=== PATIENT | female | born 1990 | race Caucasian/White ===

== ENCOUNTER 2019-06-22 05:32 | Inpatient (IN) ==
[2019-06-22] MEDS ORDERED: MEPERIDINE 50 MG/1 ML VIAL IV PRN (05:40)
[2019-06-22] MEDS ORDERED: BUTORPHANOL 2 MG/ML VIAL IV PRN (05:40)
[2019-06-22] MEDS ORDERED: ONDANSETRON 4 MG/2 ML VIAL IV PRN ×2 (05:40→13:12)
[2019-06-22] MEDS ORDERED: OXYTOCIN/LR 20 UNIT/1,000 ML BAG IV SCH (06:00)
[2019-06-22] MEDS ORDERED: AMPICILLIN INJ 2,000 MG in SODIUM CHLORIDE 0.9% 100 ML IV ONE (06:35)
[2019-06-22] MEDS ORDERED: SODIUM CHLORIDE 0.9% 100 ML IV ONE (06:37)
[2019-06-22] MEDS ORDERED: AMPICILLIN 2,000 MG VIAL ONE (06:37)
[2019-06-22 06:39] LABS: Basophils % 0.4 % (0.0-0.8); Eosinophils # 0.1 10*3/uL (0.0-0.87); Eosinophils % 0.7 % (0.00-10.9); Hemoglobin 9.8 GM/DL (12.0-16.0); Immature Granulocytes % 0.3 %; Immature Granulocytes Absolute 0.02 #; Lymphocytes # 1.9 10*3/uL (1.4-4.0); Mean Corpuscular HGB Conc 31.6 GM/DL (32-36); Mean Corpuscular Volume 88.8 FL (87-102); Mean Platelet Volume 11.1 FL (9.6-12.0); Monocytes % 9.7 % (1.7-12.7); Neutrophils % 62.9 % (38.7-73.9); Platelet Count 225 T/CUMM (130-400); Red Blood Count 3.49 MC/CUMM (3.8-5.5); Red Cell Distribution Width 12.9 % (9.3-17.3); White Blood Count 7.5 T/CUMM (4-12)
[2019-06-22 07:04] LABS: Albumin 2.4 G/DL (3.4-5.0); Bilirubin,Total 0.5 MG/DL (0.2-1.0); Calcium 8.6 MG/DL (8.5-10.1); Total Protein 6.3 G/DL (6.4-8.3)
[2019-06-22] MEDS: LACTATED RINGERS 1,000 ML IV SCH ×2 (07:20→11:26)
[2019-06-22] MEDS ORDERED: ePHEDrine 50 MG/ML AMP IV PRN (09:50)
[2019-06-22] MEDS ORDERED: hydrOXYzine HCL 25 MG/1 ML VIAL IM PRN (09:50)
[2019-06-22] MEDS ORDERED: diphenhydrAMINE 50 MG/1 ML VIAL IV PRN ×2 (09:50)
[2019-06-22] MEDS ORDERED: NALOXONE 0.4 MG/ML VIAL IV PRN (09:50)
[2019-06-22] MEDS ORDERED: PROMETHAZINE 25 MG/1 ML VIAL IM ONE (09:50)
[2019-06-22] MEDS ORDERED: LACTATED RINGERS 1,000 ML IV ONE (09:53)
[2019-06-22] MEDS ORDERED: CITRIC ACID/SODIUM CITRATE 30 ML UDCUP PO ONE (09:53)
[2019-06-22] MEDS ORDERED: FAMOTIDINE 20 MG/2 ML VIAL IV ONE (09:53)
[2019-06-22] MEDS ORDERED: fentaNYL 2 MCG/ROPIV 0.2% EPID 100 ML EPIDURAL SCH (10:00)
[2019-06-22] MEDS: AMPICILLIN INJ 1,000 MG in SODIUM CHLORIDE 0.9% 100 ML IV SCH ×2 (10:18→14:38)
[2019-06-22 11:38] LABS: Apearance,Urine CLEAR (Clear); Bilirubin,Urine Negative (Negative); Blood, Urine Small mg/dL (Negative); Glucose,Urine (UA) Negative (Negative); Ketones,Urine Negative (Negative); Nitrite,Urine Negative (Negative); Protein,Urine Negative; RBC,Urine 7 /HPF (0-4); Squamous Epithelial Cell,Urine Occasional /HPF (0-10); Urine Color Straw (Yellow); Urine Specific Gravity 1.014 (1.001-1.035); Urine Urobilinogen < 2.0 EU/DL (0.2-1.0); WBC,Urine 1 /HPF (0-6)
[2019-06-22] MEDS ORDERED: miSOPROStoL 200 MCG TABLET ONE (12:55)
[2019-06-22] MEDS ORDERED: CARBOPROST TROMETHAMINE 250 MCG/ML AMP IM ONE (12:55)
[2019-06-22] MEDS ORDERED: MEPERIDINE 25 MG/1 ML VIAL ONE (12:55)
[2019-06-22] MEDS ORDERED: METHYLERGONOVINE 0.2 MG/1 ML AMP ONE (12:55)
[2019-06-22] MEDS ORDERED: LIDOCAINE 1% 50 ML VIAL ONE (12:56)
[2019-06-22] MEDS ORDERED: OXYTOCIN/LR 20 UNIT/1,000 ML BAG IV ONE (13:12)
[2019-06-22] MEDS ORDERED: WITCH HAZEL PADS 100/JAR TOP PRN (13:12)
[2019-06-22] MEDS ORDERED: DIPH/TET/ACEL PERT BOOSTER VACCINE 0.5 ML VIAL IM ONE (13:12)
[2019-06-22] MEDS ORDERED: HYDROCORTISONE 2.5% RECTAL CREAM 30 GM TUBE TOP PRN (13:12)
[2019-06-22] MEDS ORDERED: LANOLIN 50% CREAM 0.3 OZ TUBE TOP PRN (13:12)
[2019-06-22] MEDS ORDERED: BENZOCAINE 20%/MENTHOL 0.5% SPRAY 56 GM CAN TOP PRN (13:12)
[2019-06-22] MEDS ORDERED: MEASLES/MUMPS/RUBELLA VACCINE 0.5 ML VIAL SUBCUT ONE (13:12)
[2019-06-22] MEDS ORDERED: BISACODYL 10 MG SUPP RECTAL PRN (13:12)
[2019-06-22] MEDS ORDERED: ACETAMINOPHEN 325 MG TABLET PO PRN (13:12)
[2019-06-22] MEDS ORDERED: oxyCODONE/ACETAMINOPHEN 5-325 MG TABLET PO PRN (13:12)
[2019-06-22] MEDS ORDERED: RHO(D) IMMUNE GLOBULIN 300 MCG SYRINGE IM ONE (13:12)
[2019-06-22] MEDS: IBUPROFEN 800 MG TABLET PO PRN (14:36)
[2019-06-22] MEDS: oxyCODONE/ACETAMINOPHEN 5-325 MG TABLET PO PRN (18:30)
[2019-06-22] MEDS: DOCUSATE SODIUM 100 MG CAPSULE PO SCH (21:09)
[2019-06-23] MEDS: IBUPROFEN 800 MG TABLET PO PRN ×2 (00:34→08:55)
[2019-06-23] MEDS: oxyCODONE/ACETAMINOPHEN 5-325 MG TABLET PO PRN (00:35)
[2019-06-23 06:50] LABS: Basophils % 0.3 % (0.0-0.8); Eosinophils # 0.1 10*3/uL (0.0-0.87); Eosinophils % 1.3 % (0.00-10.9); Hematocrit 27.7 VOL% (35.7-47.0); Hemoglobin 8.4 GM/DL (12.0-16.0); Immature Granulocytes % 0.6 %; Immature Granulocytes Absolute 0.05 #; Lymphocytes % 22.5 % (21.3-54.2); Mean Corpuscular HGB Conc 30.3 GM/DL (32-36); Mean Platelet Volume 11.3 FL (9.6-12.0); Monocytes % 7.4 % (1.7-12.7); Neutrophils % 67.9 % (38.7-73.9); Platelet Count 196 T/CUMM (130-400); Red Blood Count 3.01 MC/CUMM (3.8-5.5); Red Cell Distribution Width 13.1 % (9.3-17.3)
[2019-06-23] MEDS: DOCUSATE SODIUM 100 MG CAPSULE PO SCH ×2 (08:55→20:43)
[2019-06-24 08:20] VITALS: BP 114/70
[2019-06-24] MEDS ORDERED: DIPH/TET/ACEL PERT BOOSTER VACCINE 0.5 ML VIAL IM ONE (09:52)
== END 2019-06-24 10:45 | disposition home or self-care (01) | DRG 807 ==
LOC: N.LDOUT 05:32 → N.LD 05:34 → N.OB 15:12
PROVIDERS: ADMIT Specialist; ATTEND Specialist

== ENCOUNTER 2021-02-01 05:45 | Inpatient (IN) ==
[2021-02-01] MEDS ORDERED: ONDANSETRON 4 MG/2 ML VIAL IV PRN ×2 (05:56→15:55)
[2021-02-01] MEDS ORDERED: BUTORPHANOL 2 MG/ML VIAL IV PRN (05:56)
[2021-02-01] MEDS ORDERED: MEPERIDINE 50 MG/1 ML VIAL IV PRN (05:56)
[2021-02-01] MEDS ORDERED: LACTATED RINGERS 1,000 ML IV SCH (06:00)
[2021-02-01 06:21] LABS: Basophils % 0.5 % (0.0-0.8); Eosinophils # 0.1 10*3/uL (0.0-0.87); Eosinophils % 0.9 % (0.00-10.9); Hematocrit 34.7 VOL% (35.7-47.0); Hemoglobin 10.6 GM/DL (12.0-16.0); Immature Granulocytes % 0.5 %; Immature Granulocytes Absolute 0.04 #; Lymphocytes # 2.1 10*3/uL (1.4-4.0); Lymphocytes % 26.3 % (21.3-54.2); Mean Corpuscular HGB Conc 30.5 GM/DL (32-36); Mean Corpuscular Volume 83.4 FL (87-102); Mean Platelet Volume 11.9 FL (9.6-12.0); Monocytes % 5.8 % (1.7-12.7); Platelet Count 205 T/CUMM (130-400); Red Blood Count 4.16 MC/CUMM (3.8-5.5); Red Cell Distribution Width 14.1 % (9.3-17.3)
[2021-02-01] MEDS ORDERED: AMPICILLIN INJ 2,000 MG in SODIUM CHLORIDE 0.9% 100 ML IV ONE (06:30)
[2021-02-01] MEDS ORDERED: OXYTOCIN/LR 20 UNIT/1,000 ML BAG IV SCH (06:30)
[2021-02-01 06:46] LABS: Eosinophils 1 % (0-10); Hypochromasia 1+; Lymphocytes 28 % (20-55); Microcytosis 1+; Platelet Estimate Adequate; Segmented Neutrophils 67 % (50-85); Total Cells Counted 100
[2021-02-01 06:58] LABS: Albumin 2.7 G/DL (3.4-5.0); Bilirubin,Total 1.5 MG/DL (0.20-1.00); Calcium 8.7 MG/DL (8.5-10.1); Osmolality,Calculated 271.8 MOS/KG (273-304); Potassium 3.9 MMOL/L (3.5-5.1); Total Protein 7.1 G/DL (6.4-8.2)
[2021-02-01] MEDS ORDERED: FAMOTIDINE 20 MG/2 ML VIAL IV ONE (07:26)
[2021-02-01] MEDS ORDERED: PROMETHAZINE 25 MG/1 ML VIAL IM PRN (07:26)
[2021-02-01] MEDS ORDERED: diphenhydrAMINE 50 MG/1 ML VIAL IV PRN (07:26)
[2021-02-01] MEDS ORDERED: CITRIC ACID/SODIUM CITRATE 30 ML UDCUP PO ONE (07:26)
[2021-02-01] MEDS ORDERED: NALOXONE 0.4 MG/ML VIAL IV PRN (07:26)
[2021-02-01] MEDS ORDERED: hydrOXYzine HCL 25 MG/1 ML VIAL IM PRN (07:26)
[2021-02-01] MEDS ORDERED: ePHEDrine 50 MG/ML VIAL IV PRN (07:26)
[2021-02-01] MEDS ORDERED: fentaNYL 2 MCG/ROPIV 0.2% EPID 100 ML EPIDURAL SCH (07:30)
[2021-02-01 10:03] LABS: Bilirubin,Urine Negative (Negative); Blood, Urine Negative (Negative); Glucose,Urine (UA) Negative (Negative); Hyaline Casts,Urine 1 /LPF (0-3); Ketones,Urine Negative (Negative); Nitrite,Urine Negative (Negative); Protein,Urine Negative; RBC,Urine <1 /HPF (0-4); Urine Appearance CLEAR (Clear); Urine Color Straw (Yellow); Urine Specific Gravity 1.008 (1.001-1.035); Urine Urobilinogen < 2.0 EU/DL (0.2-1.0)
[2021-02-01] MEDS ORDERED: AMPICILLIN INJ 1,000 MG in SODIUM CHLORIDE 0.9% 100 ML IV SCH (10:30)
[2021-02-01] MEDS ORDERED: SODIUM CHLORIDE 0.9% 0 ML IV ONE (10:44)
[2021-02-01] MEDS ORDERED: TRANEXAMIC ACID 1,000 MG/10 ML VIAL ONE (10:44)
[2021-02-01] MEDS ORDERED: miSOPROStoL 200 MCG TABLET ONE (10:44)
[2021-02-01] MEDS ORDERED: METHYLERGONOVINE 0.2 MG/1 ML AMP ONE (10:45)
[2021-02-01] MEDS ORDERED: CARBOPROST TROMETHAMINE 250 MCG/ML AMP IM ONE (10:45)
[2021-02-01] MEDS ORDERED: DIPH/TET/ACEL PERT BOOSTER VACCINE 0.5 ML VIAL IM ONE (15:55)
[2021-02-01] MEDS ORDERED: RHO(D) IMMUNE GLOBULIN 300 MCG SYRINGE IM ONE (15:55)
[2021-02-01] MEDS ORDERED: WITCH HAZEL PADS 100/JAR TOP PRN (15:55)
[2021-02-01] MEDS ORDERED: BENZOCAINE 20%/MENTHOL 0.5% SPRAY 56 GM CAN TOP PRN (15:55)
[2021-02-01] MEDS ORDERED: OXYTOCIN/LR 20 UNIT/1,000 ML BAG IV ONE (15:55)
[2021-02-01] MEDS ORDERED: HYDROCORTISONE 2.5% RECTAL CREAM 30 GM TUBE TOP PRN (15:55)
[2021-02-01] MEDS ORDERED: LANOLIN 50% CREAM 0.3 OZ TUBE TOP PRN (15:55)
[2021-02-01] MEDS ORDERED: ACETAMINOPHEN 325 MG TABLET PO PRN (15:55)
[2021-02-01] MEDS ORDERED: oxyCODONE/ACETAMINOPHEN 5-325 MG TABLET PO PRN ×2 (15:55)
[2021-02-01] MEDS ORDERED: IBUPROFEN 800 MG TABLET PO ONE (15:55)
[2021-02-01] MEDS ORDERED: oxyCODONE/ACETAMINOPHEN 5-325 MG TABLET PO ONE (15:55)
[2021-02-01] MEDS ORDERED: MEASLES/MUMPS/RUBELLA VACCINE 0.5 ML VIAL SUBCUT ONE (15:55)
[2021-02-01] MEDS ORDERED: BISACODYL 10 MG SUPP RECTAL PRN (15:55)
[2021-02-01] MEDS: DOCUSATE SODIUM 100 MG CAPSULE PO SCH (20:42)
[2021-02-02 06:31] LABS: Basophils % 0.2 % (0.0-0.8); Eosinophils # 0.1 10*3/uL (0.0-0.87); Eosinophils % 1.3 % (0.00-10.9); Hematocrit 28.5 VOL% (35.7-47.0); Hemoglobin 8.7 GM/DL (12.0-16.0); Immature Granulocytes % 0.4 %; Immature Granulocytes Absolute 0.04 #; Lymphocytes # 2.3 10*3/uL (1.4-4.0); Lymphocytes % 24.6 % (21.3-54.2); Mean Corpuscular HGB Conc 30.5 GM/DL (32-36); Mean Corpuscular Volume 84.3 FL (87-102); Monocytes % 5.7 % (1.7-12.7); Neutrophils % 67.8 % (38.7-73.9); Platelet Count 192 T/CUMM (130-400); Red Blood Count 3.38 MC/CUMM (3.8-5.5); Red Cell Distribution Width 14.2 % (9.3-17.3); White Blood Count 9.1 T/CUMM (4-12)
[2021-02-02] MEDS: DOCUSATE SODIUM 100 MG CAPSULE PO SCH ×2 (08:40→20:13)
[2021-02-02] MEDS: IBUPROFEN 800 MG TABLET PO PRN ×2 (09:37→17:18)
[2021-02-03] MEDS: IBUPROFEN 800 MG TABLET PO PRN ×2 (03:42→08:52)
[2021-02-03 08:07] VITALS: BP 108/76
[2021-02-03] MEDS: DOCUSATE SODIUM 100 MG CAPSULE PO SCH (08:48)
== END 2021-02-03 11:33 | disposition home or self-care (01) | DRG 807 ==
LOC: N.LD 05:45 → N.OB 16:41
PROVIDERS: ADMIT Specialist; ATTEND Specialist